=== PATIENT | male | born 1960 | race Caucasian/White ===

== ENCOUNTER 2020-04-27 12:58 | Outpatient (CLI) | payer SELFPAY | END 2020-04-27 23:59 | disposition home or self-care (01) | LOC: CARD 12:58 | PROVIDERS: ATTEND Internal Medicine | DX: J45.909 Unspecified asthma, uncomplicated (principal); J30.9 Allergic rhinitis, unspecified; K21.9 Gastro-esophageal reflux disease without esophagitis | CPT/HCPCS: 94060; 94726; 94729 ==

== ENCOUNTER 2020-12-28 08:45 | Outpatient (CLI) | payer OTHER ==
[2020-12-28] MEDS ORDERED: OMNIPAQUE 350 MG/ML, 100ML BOTTLE ONE (09:40)
== END 2020-12-28 23:59 | disposition home or self-care (01) ==
LOC: CFH 08:45
PROVIDERS: ATTEND Internal Medicine
DX: R91.8 Other nonspecific abnormal finding of lung field (principal); I77.819 Aortic ectasia, unspecified site; K46.9 Unspecified abdominal hernia without obstruction or gangrene; Q25.1 Coarctation of aorta; Q25.49 Other congenital malformations of aorta
CPT/HCPCS: 71275; Q9967